=== PATIENT | female | born 1945 | race African-American/Black ===

== ENCOUNTER 2018-02-24 01:38 | Inpatient (IN) | payer MEDICARE ==
[~2018-02-24] VITALS: Ht 157.5 cm; Wt 71.2 kg
[~2018-02-24 01:38] MED LIST: ACET325S17; ALBU05; CINA30; DILT360C27; FESO4TAB; HYDR-4135; ISOS60TA4; METH500T6; METO-411; TRAM50TA; VIC
[2018-02-24] MEDS ORDERED: ONDANSETRON HCL 4MG/2ML VIAL IV STA (02:45)
[2018-02-24] MEDS ORDERED: MORPHINE SULFATE 4 MG/ML CPJ (NOT FOR IM USE) IV STA (02:45)
[2018-02-24 03:23] LABS: HEMATOCRIT. 34.9 % (36.0-48.0); HEMOGLOBIN. 11.3 g/dL (12.0-16.0); MEAN CORPUSCULAR HEMOGLOBIN 29.4 pg (28.0-32.0); MEAN CORPUSCULAR VOLUME 90.9 fL (81.0-99.0); MEAN PLATELET VOLUME 8.5 fl (7.4-10.4); PLATELET 295 x1000/uL (130-400); RED BLOOD CELL COUNT 3.84 mill/uL (4.2-5.4); RED CELL DISTRIBUTION WIDTH 17.4 % (11.6-14.6)
[2018-02-24 03:26] LABS: CHLORIDE 100 mEq/L (98-107)
[2018-02-24] MEDS ORDERED: LEVOFLOXACIN 750MG PREMIX 150 ML IV ONE (06:00)
[2018-02-24] MEDS ORDERED: METRONIDAZOLE 500 MG PREMIX 100 ML IV ONE (06:00)
[2018-02-24 06:34] LABS: PLATELET ESTIMATE NORMAL
[2018-02-24 08:30] VITALS: BP 147/67
[2018-02-24] MEDS ORDERED: ONDANSETRON HCL 4MG/2ML VIAL IV PRN (09:15)
[2018-02-24] MEDS ORDERED: GUAIFENESIN 200MG/10ML SUGAR FREE UDC PO PRN (09:15)
[2018-02-24] MEDS ORDERED: ACETAMINOPHEN 325MG TABLET PO PRN (09:15)
[2018-02-24] MEDS ORDERED: MORPHINE SULFATE 4 MG/ML CPJ (NOT FOR IM USE) IV PRN (09:30)
[2018-02-24 09:48] VITALS: BP 147/67
[2018-02-24] MEDS ORDERED: ASPI-1159 MT (10:14)
[2018-02-24] MEDS ORDERED: CARV6.2548 MT (10:14)
[2018-02-24] MEDS ORDERED: NEPVIT MT (10:14)
[2018-02-24] MEDS ORDERED: CALC667T5 MT (10:15)
[2018-02-24] MEDS ORDERED: CINA60 MT (10:16)
[2018-02-24] MEDS ORDERED: CETI5TAB5 MT (10:17)
[2018-02-24] MEDS ORDERED: OMEP40CA34 MT (10:18)
[2018-02-24] MEDS ORDERED: AZEL205. NS (10:20)
[2018-02-24] MEDS ORDERED: ALBU90AE IH (10:22)
[2018-02-24 13:30] VITALS: BP 122/60
[2018-02-24 16:00] VITALS: BP 134/70
[2018-02-24] MEDS: SIMETHICONE 80MG TABLET CHEW PO PRN (16:00)
[2018-02-24 20:00] VITALS: BP 129/59
[2018-02-25 00:03] VITALS: BP 150/76
[2018-02-25 04:00] VITALS: BP 125/53
[2018-02-25 05:28] LABS: BASOPHILS % 0.3 % (0.0-2.0); EOSINOPHILS % 0.6 % (0.0-5.0); HEMATOCRIT. 34.5 % (36.0-48.0); HEMOGLOBIN. 10.9 g/dL (12.0-16.0); LYMPHOCYTES % 7.2 % (20.0-50.0); MEAN CORPUSCULAR HEMOGLOBIN 29.5 pg (28.0-32.0); MEAN CORPUSCULAR VOLUME 93.1 fL (81.0-99.0); MEAN PLATELET VOLUME 8.9 fl (7.4-10.4); MONOCYTES % 10.1 % (2.0-8.0); NEUTROPHILS % 81.8 % (40.0-76.0); PLATELET 285 x1000/uL (130-400); RED BLOOD CELL COUNT 3.71 mill/uL (4.2-5.4); RED CELL DISTRIBUTION WIDTH 17.4 % (11.6-14.6)
[2018-02-25 05:38] LABS: PHOSPHORUS 4.3 mg/dL (2.5-4.9)
[2018-02-25] MEDS ORDERED: LEVOFLOXACIN 500MG PREMIX 100 ML IV SCH (07:00)
[2018-02-25] MEDS: SIMETHICONE 80MG TABLET CHEW PO PRN ×2 (07:59→18:10)
[2018-02-25 08:00] VITALS: BP 135/61
[2018-02-25] MEDS: METRONIDAZOLE 500 MG PREMIX 100 ML IV SCH ×2 (08:59→20:42)
[2018-02-25] MEDS: LEVOFLOXACIN 250MG PREMIX 50 ML IV SCH (10:20)
[2018-02-25 12:00] VITALS: BP 130/70
[2018-02-25 16:00] VITALS: BP 140/76
[2018-02-25 20:00] VITALS: BP 148/58
[2018-02-26 00:05] VITALS: BP 126/60
[2018-02-26 04:00] VITALS: BP 102/59
[2018-02-26 05:50] LABS: BASOPHILS % 0.5 % (0.0-2.0); EOSINOPHILS % 2.6 % (0.0-5.0); HEMATOCRIT. 32.3 % (36.0-48.0); HEMOGLOBIN. 10.5 g/dL (12.0-16.0); LYMPHOCYTES % 14.4 % (20.0-50.0); MEAN CORPUSCULAR HEMOGLOBIN 30.1 pg (28.0-32.0); MEAN CORPUSCULAR VOLUME 92.4 fL (81.0-99.0); MEAN PLATELET VOLUME 8.6 fl (7.4-10.4); MONOCYTES % 12.1 % (2.0-8.0); NEUTROPHILS % 70.4 % (40.0-76.0); PLATELET 295 x1000/uL (130-400); RED BLOOD CELL COUNT 3.49 mill/uL (4.2-5.4); RED CELL DISTRIBUTION WIDTH 16.8 % (11.6-14.6)
[2018-02-26 06:51] LABS: PHOSPHORUS 5.5 mg/dL (2.5-4.9)
[2018-02-26] MEDS ORDERED: LEVOFLOXACIN 250MG PREMIX 50 ML IV SCH (07:00)
[2018-02-26 08:00] VITALS: BP 131/64
[2018-02-26] MEDS: SIMETHICONE 80MG TABLET CHEW PO PRN (08:09)
[2018-02-26] MEDS ORDERED: SODIUM POLYSTYRENE SULFONATE 15 G/60 ML BOT PO SCH (09:00)
[2018-02-26] MEDS: METRONIDAZOLE 500 MG PREMIX 100 ML IV SCH ×2 (09:22→20:51)
[2018-02-26 12:00] VITALS: BP 138/62
[2018-02-26] MEDS: CALCIUM ACETATE 667MG CAPSULE PO SCH ×2 (13:08→18:14)
[2018-02-26 16:00] VITALS: BP 132/69
[2018-02-26 20:00] VITALS: BP 138/55
[2018-02-27 00:05] VITALS: BP 144/54
[2018-02-27 04:02] VITALS: BP 130/53
[2018-02-27 05:53] LABS: BASOPHILS % 0.4 % (0.0-2.0); EOSINOPHILS % 2.7 % (0.0-5.0); HEMATOCRIT. 30.7 % (36.0-48.0); LYMPHOCYTES % 16.1 % (20.0-50.0); MEAN CORPUSCULAR HEMOGLOBIN 29.7 pg (28.0-32.0); MEAN CORPUSCULAR VOLUME 90.8 fL (81.0-99.0); MEAN PLATELET VOLUME 8.7 fl (7.4-10.4); MONOCYTES % 11.5 % (2.0-8.0); NEUTROPHILS % 69.3 % (40.0-76.0); PLATELET 308 x1000/uL (130-400); RED BLOOD CELL COUNT 3.38 mill/uL (4.2-5.4); RED CELL DISTRIBUTION WIDTH 17.1 % (11.6-14.6)
[2018-02-27 06:51] LABS: PHOSPHORUS 6.4 mg/dL (2.5-4.9)
[2018-02-27 08:17] VITALS: BP 144/61
[2018-02-27] MEDS: CALCIUM ACETATE 667MG CAPSULE PO SCH ×2 (08:37→13:10)
[2018-02-27] MEDS: METRONIDAZOLE 500 MG PREMIX 100 ML IV SCH (08:39)
[2018-02-27] MEDS: LEVOFLOXACIN 250MG PREMIX 50 ML IV SCH (09:30)
[2018-02-27 12:11] VITALS: BP 150/68
[2018-02-27 16:46] VITALS: BP 136/68
[2018-02-27 17:05] VITALS: BP 136/68
== END 2018-02-27 17:29 | disposition home or self-care (01) | DRG 391 ==
LOC: ER 05:15 → 7WST 05:47 → EDBEDREQTM 05:50 → EDBEDREQ 05:50 → EDBEDREQSVC 05:50 → ENRESERV 06:55 → 7WST 09:15
PROVIDERS: ADMIT Internal Medicine; ATTEND Internal Medicine
PROC: 5A1D70Z Performance of Urinary Filtration, Intermittent, Less than 6 Hours Per Day (ICD-10-PCS; principal; 2018-02-24)
PROC: 5A1D70Z Performance of Urinary Filtration, Intermittent, Less than 6 Hours Per Day (ICD-10-PCS; 2018-02-27)
DX: K57.32 Diverticulitis of large intestine without perforation or abscess without bleeding (principal); N18.6 End stage renal disease; E44.0 Moderate protein-calorie malnutrition; N25.81 Secondary hyperparathyroidism of renal origin; I12.0 Hypertensive chronic kidney disease with stage 5 chronic kidney disease or end stage renal disease; E87.5 Hyperkalemia; D64.9 Anemia, unspecified; K59.00 Constipation, unspecified; I95.3 Hypotension of hemodialysis; Z96.651 Presence of right artificial knee joint; J44.9 Chronic obstructive pulmonary disease, unspecified; Z82.49 Family history of ischemic heart disease and other diseases of the circulatory system; Z85.528 Personal history of other malignant neoplasm of kidney; Z90.5 Acquired absence of kidney; Z85.818 Personal history of malignant neoplasm of other sites of lip, oral cavity, and pharynx; Z95.0 Presence of cardiac pacemaker; Z99.2 Dependence on renal dialysis; Z92.3 Personal history of irradiation; Z90.710 Acquired absence of both cervix and uterus; Z88.5 Allergy status to narcotic agent; Z91.048 Other nonmedicinal substance allergy status; Z68.28 Body mass index [BMI] 28.0-28.9, adult
CPT/HCPCS: 36415; 74176; 80048; 80053; 83605; 83690; 83735; 84100; 85025; 96365; 96366; 96368; 96375; 99285; J1956; J2270; J2405; J3490; J7030; J7050

== ENCOUNTER 2021-08-21 12:10 | Emergency (ER) | payer MEDICARE ==
[~2021-08-21] VITALS: Ht 165.1 cm; Wt 82.0 kg
[~2021-08-21 12:10] MED LIST changes: -ACET325S17; -ALBU05; +ALBU90AE IH; +ASPI-1497 MT; +AZEL205. NS; +CALC667T6 MT; +CARV6.2548 MT; +CETI5TAB5 MT; -CINA30; +CINA60 MT; -DILT360C27; -FESO4TAB; -HYDR-4135; -ISOS60TA4; -METH500T6; -METO-411; +NEPVIT MT; +OMEP40CA20 MT; -TRAM50TA; -VIC
[2021-08-21 14:19] LABS: BASOPHILS % 0.6 % (0.0-2.0); EOSINOPHILS % 2.3 % (0.0-5.0); HEMATOCRIT. 32.2 % (36.0-48.0); HEMOGLOBIN. 10.2 g/dL (12.0-16.0); MEAN CORPUSCULAR HEMOGLOBIN 29.6 pg (28.0-32.0); MEAN CORPUSCULAR VOLUME 92.9 fL (81.0-99.0); MEAN PLATELET VOLUME 9.3 fl (7.4-10.4); NEUTROPHILS % 65.1 % (40.0-76.0); PLATELET 321 x1000/uL (130-400); RED BLOOD CELL COUNT 3.46 mill/uL (4.2-5.4); RED CELL DISTRIBUTION WIDTH 17.1 % (11.6-14.6)
[2021-08-21 14:20] LABS: CHLORIDE 104 mEq/L (98-107)
[2021-08-21 16:34] VITALS: BP 144/68
== END 2021-08-21 19:05 | disposition left against medical advice (07) ==
LOC: ER 12:31
DX: R55 Syncope and collapse (principal); J45.909 Unspecified asthma, uncomplicated; I10 Essential (primary) hypertension; Z79.82 Long term (current) use of aspirin; Z79.899 Other long term (current) drug therapy; Z98.890 Other specified postprocedural states
CPT/HCPCS: 36415; 71045; 80053; 82962; 83880; 84484; 85025; 93005; 99285

== ENCOUNTER 2022-11-24 11:12 | Inpatient (IN) | payer MEDICARE ==
[~2022-11-24] VITALS: Ht 165.1 cm; Wt 74.8 kg
[2022-11-24 12:06] LABS: HEMATOCRIT. 38.4 % (36.0-48.0); HEMOGLOBIN. 12.8 g/dL (12.0-16.0); MEAN PLATELET VOLUME 8.4 fl (7.4-10.4); PLATELET 314 x1000/uL (130-400); RED BLOOD CELL COUNT 4.13 mill/uL (4.2-5.4); RED CELL DISTRIBUTION WIDTH 20.1 % (11.6-14.6)
[2022-11-24 12:14] LABS: CHLORIDE 97 mEq/L (98-107)
[2022-11-24] MEDS ORDERED: LORAZEPAM 2MG/ML CPJ IV ONE (12:45)
[2022-11-24 13:12] LABS: PLATELET ESTIMATE NORMAL
[2022-11-24] MEDS ORDERED: HYDRALAZINE 20MG/ML VIAL IV NR (16:45)
[2022-11-24] MEDS ORDERED: HYDRALAZINE 20MG/ML VIAL IV PRN (17:30)
[2022-11-24] MEDS ORDERED: DOCUSATE SODIUM 100MG CAPSULE PO PRN (17:30)
[2022-11-24] MEDS ORDERED: MAGNESIUM/ALUMINUM HYDROXIDE/SIMETHICONE 30ML UDC PO PRN (17:30)
[2022-11-24] MEDS ORDERED: IPRATROPIUM/ALBUTEROL 0.5-3(2.5)MG/3ML NEB NEB PRN (17:30)
[2022-11-24] MEDS ORDERED: ZOLPIDEM TARTRATE 5MG TABLET PO PRN (17:30)
[2022-11-24] MEDS ORDERED: ACETAMINOPHEN 325MG TABLET PO PRN (17:30)
[2022-11-24] MEDS ORDERED: CLONIDINE 0.1MG TABLET PO PRN (17:30)
[2022-11-24] MEDS ORDERED: GUAIFENESIN 200MG/10ML SUGAR FREE UDC PO PRN (17:30)
[2022-11-24] MEDS ORDERED: NITROGLYCERIN 0.4MG TABLET SL SL PRN (17:30)
[2022-11-24] MEDS ORDERED: ONDANSETRON HCL 4MG/2ML INJ IV PRN (17:30)
[2022-11-24 17:59] LABS: T4 FREE 0.91 ng/dL (0.76-1.46)
[2022-11-24 18:24] LABS: FOLIC ACID (FOLATE) SERUM >20 ng/mL ng/mL (>5.38); VITAMIN B12 SERUM 628 pg/mL (211-911)
[2022-11-24] MEDS ORDERED: SODIUM POLYSTYRENE SULFONATE 15 G/60 ML BOT PO NR (20:15)
[2022-11-24] MEDS: FAMOTIDINE 20MG TABLET PO SCH (21:00)
[2022-11-24] MEDS: ASCORBIC ACID 500 MG TABLET PO SCH (21:00)
[2022-11-24] MEDS: NITROGLYCERIN OINT 1GM/INCH UDPKT TD SCH (22:00)
[2022-11-24] MEDS: HYDRALAZINE HCL 50MG TABLET PO SCH (22:00)
[2022-11-24 23:46] LABS: CREATINE KINASE MB FRACTION 3.3 ng/mL (0.5-3.6)
[2022-11-24 23:49] LABS: HEPATITIS B SURFACE ANTIGEN NEGATIVE
[2022-11-25] VITALS (10 sets, daily range): BP systolic 59–170; BP diastolic 44–83
[2022-11-25] MEDS: NITROGLYCERIN OINT 1GM/INCH UDPKT TD SCH ×3 (06:55→22:00)
[2022-11-25] MEDS: CARVEDILOL 3.125 MG TABLET PO SCH ×2 (06:56→18:28)
[2022-11-25] MEDS: HYDRALAZINE HCL 50MG TABLET PO SCH ×3 (06:56→22:00)
[2022-11-25] MEDS: AMLODIPINE 10MG TABLET PO SCH (08:48)
[2022-11-25] MEDS: ASCORBIC ACID 500 MG TABLET PO SCH ×2 (08:48→22:00)
[2022-11-25] MEDS: ASPIRIN 325MG EC TABLET PO SCH (08:48)
[2022-11-25] MEDS: SEVELAMER CARBONATE 800 MG TABLET PO SCH ×3 (08:48→18:27)
[2022-11-25] MEDS: ZINC SULFATE 220 MG ( 50 ) CAPSULE PO SCH (08:48)
[2022-11-25] MEDS: ACETAMINOPHEN 325MG TABLET PO PRN (11:50)
[2022-11-25] MEDS: ENOXAPARIN 30MG/0.3ML SYR SUBCUT SCH (18:27)
[2022-11-26] VITALS: BP 113/50
[2022-11-26 04:00] VITALS: BP 112/42
[2022-11-26] MEDS: HYDRALAZINE HCL 50MG TABLET PO SCH ×3 (06:00→21:23)
[2022-11-26] MEDS: NITROGLYCERIN OINT 1GM/INCH UDPKT TD SCH ×3 (06:00→21:23)
[2022-11-26] MEDS: CARVEDILOL 3.125 MG TABLET PO SCH ×2 (06:27→18:22)
[2022-11-26 08:00] VITALS: BP 146/55
[2022-11-26] MEDS: ZINC SULFATE 220 MG ( 50 ) CAPSULE PO SCH (09:48)
[2022-11-26] MEDS: SEVELAMER CARBONATE 800 MG TABLET PO SCH ×3 (09:48→18:23)
[2022-11-26] MEDS: ACETAMINOPHEN 325MG TABLET PO PRN (09:48)
[2022-11-26] MEDS: ASPIRIN 325MG EC TABLET PO SCH (09:48)
[2022-11-26] MEDS: AMLODIPINE 10MG TABLET PO SCH (09:49)
[2022-11-26] MEDS: ASCORBIC ACID 500 MG TABLET PO SCH ×2 (09:49→21:23)
[2022-11-26 12:00] VITALS: BP 118/49
[2022-11-26 15:26] VITALS: BP 118/49
[2022-11-26] MEDS: ENOXAPARIN 30MG/0.3ML SYR SUBCUT SCH (18:23)
[2022-11-26 20:00] VITALS: BP 144/79
[2022-11-26] MEDS: FAMOTIDINE 20MG TABLET PO SCH (21:23)
[2022-11-27] VITALS (13 sets, daily range): BP systolic 106–154; BP diastolic 40–68
[2022-11-27] MEDS: HYDRALAZINE HCL 50MG TABLET PO SCH (05:31)
[2022-11-27] MEDS: NITROGLYCERIN OINT 1GM/INCH UDPKT TD SCH (05:32)
[2022-11-27] MEDS: CARVEDILOL 3.125 MG TABLET PO SCH (05:32)
[2022-11-27 07:02] LABS: HEMATOCRIT. 35.1 % (36.0-48.0); HEMOGLOBIN. 11.7 g/dL (12.0-16.0); MEAN CORPUSCULAR HEMOGLOBIN 31.6 pg (28.0-32.0); MEAN CORPUSCULAR VOLUME 94.5 fL (81.0-99.0); MEAN PLATELET VOLUME 8.9 fl (7.4-10.4); PLATELET 299 x1000/uL (130-400); RED BLOOD CELL COUNT 3.71 mill/uL (4.2-5.4); RED CELL DISTRIBUTION WIDTH 19.8 % (11.6-14.6)
[2022-11-27 07:22] LABS: PHOSPHORUS 7.7 mg/dL (2.5-4.9)
[2022-11-27] MEDS: SEVELAMER CARBONATE 800 MG TABLET PO SCH (08:28)
[2022-11-27] MEDS: ZINC SULFATE 220 MG ( 50 ) CAPSULE PO SCH (08:28)
[2022-11-27] MEDS: ASCORBIC ACID 500 MG TABLET PO SCH (08:28)
[2022-11-27] MEDS: ASPIRIN 325MG EC TABLET PO SCH (08:28)
[2022-11-27] MEDS: AMLODIPINE 10MG TABLET PO SCH (09:00)
[2022-11-27 09:38] LABS: NUCLEATED RED BLOOD CELLS 1 /100 WBC; PLATELET ESTIMATE NORMAL
[2022-11-27] MEDS ORDERED: SEVELAMER CARBONATE 800 MG TABLET PO SCH (17:40)
[2022-11-30] MEDS ORDERED: PRED5DRO22 RIGHTEYE (22:25)
[2022-11-30] MEDS ORDERED: XALAO RIGHTEYE (22:25)
[2022-11-30] MEDS ORDERED: BRIM5DRO6 RIGHTEYE (22:25)
[2022-11-30] MEDS ORDERED: KETO5DRO37 RIGHTEYE (22:25)
[2022-12-01] MEDS ORDERED: LACT10SO7 MT (09:40)
[2022-12-03] MEDS ORDERED: OMEP20CA14 MT (09:33)
== END 2022-11-27 15:05 | disposition home or self-care (01) | DRG 91 ==
LOC: ER 11:25 → 8WST 14:27 → EDBEDREQ 14:34 → SUPCPDRO 17:18
PROVIDERS: ADMIT Internal Medicine; ATTEND Internal Medicine
PROC: 5A1D70Z Performance of Urinary Filtration, Intermittent, Less than 6 Hours Per Day (ICD-10-PCS; principal; 2022-11-24)
PROC: 5A1D70Z Performance of Urinary Filtration, Intermittent, Less than 6 Hours Per Day (ICD-10-PCS; 2022-11-25)
PROC: 5A1D70Z Performance of Urinary Filtration, Intermittent, Less than 6 Hours Per Day (ICD-10-PCS; 2022-11-26)
DX: G92.8 Other toxic encephalopathy (principal); N18.6 End stage renal disease; I13.2 Hypertensive heart and chronic kidney disease with heart failure and with stage 5 chronic kidney disease, or end stage renal disease; E87.20 Acidosis, unspecified; I16.1 Hypertensive emergency; E87.1 Hypo-osmolality and hyponatremia; E88.09 Other disorders of plasma-protein metabolism, not elsewhere classified; D63.1 Anemia in chronic kidney disease; I50.9 Heart failure, unspecified; E87.5 Hyperkalemia; J44.9 Chronic obstructive pulmonary disease, unspecified; Z82.49 Family history of ischemic heart disease and other diseases of the circulatory system; Z85.818 Personal history of malignant neoplasm of other sites of lip, oral cavity, and pharynx; Z95.0 Presence of cardiac pacemaker; Z99.2 Dependence on renal dialysis
CPT/HCPCS: 36415; 71045; 80048; 80053; 80061; 82550; 82553; 82607; 82746; 82962; 83036; 83540; 83550; 83605; 83735; 84100; 84145; 84439; 84443; 84484; 85025; 86705; 86709; 86803; 87340; 90935; 93005; 93306; 93970; 97161; 99285; C1893; J0360; J1650; J2060

== ENCOUNTER 2023-10-10 17:59 | Emergency (ER) | payer MEDICARE ==
[~2023-10-10] VITALS: Ht 157.5 cm; Wt 68.0 kg
[~2023-10-10 17:59] MED LIST changes: +BRIM5DRO6 RIGHTEYE; -CETI5TAB5 MT; +KETO5DRO38 RIGHTEYE; +LACT10SO7 MT; +OMEP20CA14 MT; +PRED5DRO22 RIGHTEYE; +XALAO RIGHTEYE
[2023-10-10 18:11] VITALS: TEMP 97.5; O2SAT 100
[2023-10-10] MEDS ORDERED: BACITRACIN ZINC OINT UDPKT TOP ONE (18:30)
[2023-10-10] MEDS ORDERED: LIDOCAINE HCL/PF 1% 10 MG/ML 5ML VIAL INFIL ONE (18:30)
[2023-10-10 20:26] LABS: EOSINOPHILS % 1.3 % (0.0-5.0); HEMATOCRIT. 31.8 % (36.0-48.0); HEMOGLOBIN. 10.4 g/dL (12.0-16.0); LYMPHOCYTES % 17.8 % (20.0-50.0); MEAN CORPUSCULAR HEMOGLOBIN 32.4 pg (28.0-32.0); MEAN CORPUSCULAR HGB CONC 32.6 g/dL (31.0-37.0); MEAN CORPUSCULAR VOLUME 99.2 fL (81.0-99.0); MEAN PLATELET VOLUME 8.3 fl (7.4-10.4); MONOCYTES % 11.8 % (2.0-8.0); NEUTROPHILS % 68.1 % (40.0-76.0); PLATELET 302 x1000/uL (130-400); RED CELL DISTRIBUTION WIDTH 15.8 % (11.6-14.6); WHITE BLOOD COUNT 6.5 x1000/uL (4.5-11.0)
[2023-10-10 20:36] LABS: PARTIAL THROMBOPLASTIN TIME 27.6 sec (23.4-31.0); PROTHROMBIN TIME 11.3 sec (9.6-11.0)
[2023-10-10 21:34] VITALS: BP 154/67; PULSE 88; RESP 14
== END 2023-10-10 21:40 | disposition home or self-care (01) ==
LOC: ER 18:20
DX: T82.838A Hemorrhage due to vascular prosthetic devices, implants and grafts, initial encounter (principal); I12.0 Hypertensive chronic kidney disease with stage 5 chronic kidney disease or end stage renal disease; N18.6 End stage renal disease; J45.909 Unspecified asthma, uncomplicated; Z99.2 Dependence on renal dialysis; Z95.0 Presence of cardiac pacemaker; X58.XXXA Exposure to other specified factors, initial encounter
CPT/HCPCS: 36415; 85025; 86850; 86900; 99283

== ENCOUNTER 2025-04-24 07:22 | Inpatient (IN) | payer MEDICARE ==
[2025-04-24] VITALS (14 sets, daily range): BP systolic 150–185; BP diastolic 46–78; PULSE 67–75; RESP 18–20; TEMP 36.2–37.1408; O2SAT 97–100
[~2025-04-24] VITALS: Ht 157.5 cm; Wt 59.9 kg
[~2025-04-24 07:22] MED LIST changes: -AZEL205. NS; +AZEL205.2 NS; +FOLI0.8T53 MT; +KETO-104 RIGHTEYE; -KETO5DRO38 RIGHTEYE; -NEPVIT MT
[2025-04-24 08:15] LABS: BASOPHILS % 1.2 % (0.0-2.0); EOSINOPHILS % 0.6 % (0.0-5.0); HEMATOCRIT. 30.1 % (36.0-48.0); HEMOGLOBIN. 9.7 g/dL (12.0-16.0); LYMPHOCYTES % 12.7 % (20.0-50.0); MEAN PLATELET VOLUME 7.9 fl (7.4-10.4); MONOCYTES % 10.6 % (2.0-8.0); NEUTROPHILS % 74.9 % (40.0-76.0); PLATELET 234 x1000/uL (130-400); RED BLOOD CELL COUNT 3.01 mill/uL (4.2-5.4); RED CELL DISTRIBUTION WIDTH 18.3 % (11.6-14.6)
[2025-04-24 08:30] LABS: UREA NITROGEN BLOOD 28 mg/dL (9-23)
[2025-04-24 08:31] LABS: ASPARTATE AMINOTRANSFERASE 14 IU/L (<34)
[2025-04-24 08:32] LABS: BILIRUBIN DIRECT 0.1 mg/dL (<=3.0); BILIRUBIN TOTAL 0.4 mg/dL (0.1-1.0); PROTEIN TOTAL 6.5 g/dL (6.0-8.3)
[2025-04-24 08:39] LABS: CREATININE 6.2 mg/dL (0.6-1.0)
[2025-04-24] MEDS: KETOROLAC 15MG/ML VIAL IV ONE (08:47)
[2025-04-24] MEDS: ONDANSETRON HCL 4MG/2ML INJ IV ONE (08:47)
[2025-04-24] MEDS ORDERED: METRONIDAZOLE 500 MG PREMIX 100 ML IV ONE (09:15)
[2025-04-24] MEDS ORDERED: LEVOFLOXACIN 500MG PREMIX 100 ML IV ONE (09:15)
[2025-04-24] MEDS ORDERED: ACETAMINOPHEN 325MG TABLET PO PRN (11:30)
[2025-04-24] MEDS ORDERED: DOCUSATE SODIUM 100MG CAPSULE PO PRN (11:30)
[2025-04-24] MEDS ORDERED: ONDANSETRON HCL 4MG/2ML INJ IV PRN (11:30)
[2025-04-24] MEDS ORDERED: IPRATROPIUM/ALBUTEROL 0.5-3(2.5)MG/3ML NEB HHN PRN (11:30)
[2025-04-24] MEDS ORDERED: GUAIFENESIN 200MG/10ML SUGAR FREE UDC PO PRN (11:30)
[2025-04-24] MEDS ORDERED: CLONIDINE 0.1MG TABLET PO PRN (11:30)
[2025-04-24] MEDS ORDERED: MAGNESIUM/ALUMINUM HYDROXIDE/SIMETHICONE 30ML UDC PO PRN (11:30)
[2025-04-24] MEDS ORDERED: LORAZEPAM 0.5MG TABLET PO PRN (11:30)
[2025-04-24] MEDS ORDERED: LACTULOSE 20G/30ML UDC PO PRN (12:00)
[2025-04-24] MEDS: FAMOTIDINE 20MG/2ML VIAL IV SCH (12:47)
[2025-04-24] MEDS: CALCIUM ACETATE 667MG CAPSULE PO SCH (12:47)
[2025-04-24] MEDS: PIPERACILLIN/TAZO 3.375G/50ML 50 ML IV SCH (13:00)
[2025-04-24] MEDS: LOSARTAN 100 MG TABLET PO SCH (13:21)
[2025-04-24 13:26] LABS: INR 1.1
[2025-04-24 13:34] LABS: TROPONIN I HIGH SENSITIVITY 28 ng/L (3.0-34)
[2025-04-24 13:36] LABS: PHOSPHORUS 5.3 mg/dL (2.5-4.9)
[2025-04-24 14:31] LABS: FOLIC ACID (FOLATE) SERUM 8.88 ng/mL (>5.38); VITAMIN B12 SERUM 493 pg/mL (211-911)
[2025-04-24] MEDS ORDERED: PREDNISOLONE ACETATE 1% OPHTH DROPS 5ML RIGHTEYE SCH (21:00)
[2025-04-24] MEDS ORDERED: BRIMONIDINE 0.2% OPHTH DROPS 5ML EACHEYE SCH (21:00)
[2025-04-24] MEDS: ATORVASTATIN CALCIUM 20MG TABLET PO SCH (21:56)
[2025-04-24] MEDS: CARVEDILOL 6.25 MG TABLET PO SCH (21:57)
[2025-04-24] MEDS: LATANOPROST 0.005% OPHTH DROPS 2.5ML RIGHTEYE SCH (21:57)
[2025-04-24] MEDS: BRIMONIDINE 0.2% OPHTH DROPS 5ML RIGHTEYE SCH (21:58)
[2025-04-24] MEDS: EPOETIN ALFA-EPBX 4,000 UNITS/ML VIAL SUBCUT SCH (21:58)
[2025-04-24 22:25] LABS: TROPONIN I HIGH SENSITIVITY 23 ng/L (3.0-34)
[2025-04-25] VITALS: BP 154/55; PULSE 69; RESP 17; TEMP 36.2; O2SAT 100
[2025-04-25 04:00] VITALS: BP 159/54; PULSE 67; RESP 17; TEMP 36.2; O2SAT 100
[2025-04-25] MEDS: ACETAMINOPHEN 325MG TABLET PO PRN (05:02)
[2025-04-25 08:00] VITALS: BP 151/56; PULSE 64; RESP 18; TEMP 36.8; O2SAT 100
[2025-04-25] MEDS ORDERED: CINACALCET HCL 60MG TABLET PO SCH (09:00)
[2025-04-25 09:04] LABS: BASOPHILS % 0.5 % (0.0-2.0); EOSINOPHILS % 1.6 % (0.0-5.0); HEMATOCRIT. 29.8 % (36.0-48.0); HEMOGLOBIN. 9.3 g/dL (12.0-16.0); LYMPHOCYTES % 17.9 % (20.0-50.0); MEAN PLATELET VOLUME 8.5 fl (7.4-10.4); MONOCYTES % 12.7 % (2.0-8.0); NEUTROPHILS % 67.3 % (40.0-76.0); PLATELET 203 x1000/uL (130-400); RED BLOOD CELL COUNT 2.91 mill/uL (4.2-5.4); RED CELL DISTRIBUTION WIDTH 18.5 % (11.6-14.6)
[2025-04-25 09:23] LABS: TROPONIN I HIGH SENSITIVITY 25 ng/L (3.0-34)
[2025-04-25 09:25] LABS: ASPARTATE AMINOTRANSFERASE 10 IU/L (<34)
[2025-04-25 09:26] LABS: BILIRUBIN DIRECT 0.2 mg/dL (<=3.0); BILIRUBIN TOTAL 0.4 mg/dL (0.1-1.0); PROTEIN TOTAL 6.5 g/dL (6.0-8.3)
[2025-04-25] MEDS: FERROUS SULFATE 325MG TABLET PO SCH (09:38)
[2025-04-25] MEDS: FOLIC ACID/VITAMIN B COMP W-C TABLET PO SCH (09:38)
[2025-04-25] MEDS: ASPIRIN 81MG EC TABLET PO SCH (09:39)
[2025-04-25 12:00] VITALS: BP 156/54; PULSE 65; RESP 18; TEMP 36.7; O2SAT 100
[2025-04-25] MEDS: HYDRALAZINE 20MG/ML VIAL IV SCH (12:53)
[2025-04-25 16:00] VITALS: BP 160/65; PULSE 77; RESP 18; TEMP 36.7; O2SAT 100
[2025-04-25 18:31] LABS: CREATINE KINASE MB FRACTION 1.1 ng/mL (0.5-3.6); LDL CHOLESTEROL 60 mg/dL (5-100); TRIGLYCERIDE 74 mg/dL (0-150); UREA NITROGEN BLOOD 19 mg/dL (9-23)
[2025-04-25 18:32] LABS: ASPARTATE AMINOTRANSFERASE 15 IU/L (<34)
[2025-04-25 18:33] LABS: BILIRUBIN DIRECT 0.1 mg/dL (<=3.0); BILIRUBIN TOTAL 0.3 mg/dL (0.1-1.0); PHOSPHORUS 5.0 mg/dL (2.5-4.9); PROTEIN TOTAL 7.2 g/dL (6.0-8.3)
[2025-04-25 18:35] LABS: T4 FREE 1.04 ng/dL (0.89-1.76)
[2025-04-25 18:36] LABS: CREATININE 5.3 mg/dL (0.6-1.0)
[2025-04-25 20:00] VITALS: BP 157/52; PULSE 82; RESP 18; TEMP 36.4; O2SAT 99
[2025-04-26] VITALS (15 sets, daily range): BP systolic 126–184; BP diastolic 48–68; PULSE 68–79; RESP 16–18; TEMP 36.3–36.6; O2SAT 98–100
[2025-04-26 12:04] LABS: CREATINE KINASE MB FRACTION 1.2 ng/mL (0.5-3.6)
[2025-04-26 12:09] LABS: PHOSPHORUS 5.1 mg/dL (2.5-4.9); UREA NITROGEN BLOOD 34 mg/dL (9-23)
[2025-04-26 12:30] LABS: CREATININE 6.6 mg/dL (0.6-1.0)
[2025-04-26 13:27] LABS: HEPATITIS A AB IGM NEGATIVE (Negative); HEPATITIS B CORE AB IGM NEGATIVE (Negative)
[2025-04-26 13:28] LABS: HEPATITIS C AB NON REACTIVE (Neg) (Negative)
[2025-04-26] MEDS ORDERED: SULF1TAB48 MT ×2 (13:40→15:51)
[2025-04-26] MEDS ORDERED: METR-167 MT ×2 (13:40→15:51)
[2025-04-26 14:11] LABS: BASOPHILS % 1.4 % (0.0-2.0); EOSINOPHILS % 2.3 % (0.0-5.0); HEMATOCRIT. 30.5 % (36.0-48.0); HEMOGLOBIN. 9.7 g/dL (12.0-16.0); LYMPHOCYTES % 21.0 % (20.0-50.0); MEAN PLATELET VOLUME 8.7 fl (7.4-10.4); MONOCYTES % 12.3 % (2.0-8.0); NEUTROPHILS % 63.0 % (40.0-76.0); PLATELET 236 x1000/uL (130-400); RED BLOOD CELL COUNT 2.97 mill/uL (4.2-5.4); RED CELL DISTRIBUTION WIDTH 18.1 % (11.6-14.6)
== END 2025-04-26 16:00 | disposition home health service (06) | DRG 391 ==
LOC: ER 07:32 → 6EST 09:04 → EDBEDREQTM 09:08 → EDBEDREQ 09:08 → ENRESERV 09:24 → 6WST 18:48
PROVIDERS: ADMIT Internal Medicine; ATTEND Internal Medicine
PROC: 5A1D70Z Performance of Urinary Filtration, Intermittent, Less than 6 Hours Per Day (ICD-10-PCS; principal; 2025-04-24)
PROC: 5A1D70Z Performance of Urinary Filtration, Intermittent, Less than 6 Hours Per Day (ICD-10-PCS; 2025-04-26)
DX: K57.32 Diverticulitis of large intestine without perforation or abscess without bleeding (principal); K65.9 Peritonitis, unspecified; N18.6 End stage renal disease; N32.1 Vesicointestinal fistula; I13.2 Hypertensive heart and chronic kidney disease with heart failure and with stage 5 chronic kidney disease, or end stage renal disease; I42.9 Cardiomyopathy, unspecified; I50.42 Chronic combined systolic (congestive) and diastolic (congestive) heart failure; K80.20 Calculus of gallbladder without cholecystitis without obstruction; E83.51 Hypocalcemia; N30.90 Cystitis, unspecified without hematuria; E78.5 Hyperlipidemia, unspecified; I16.0 Hypertensive urgency; I27.20 Pulmonary hypertension, unspecified; D53.9 Nutritional anemia, unspecified; I07.1 Rheumatic tricuspid insufficiency; I25.10 Atherosclerotic heart disease of native coronary artery without angina pectoris; J44.89 Other specified chronic obstructive pulmonary disease; R06.03 Acute respiratory distress; I34.0 Nonrheumatic mitral (valve) insufficiency; Z99.2 Dependence on renal dialysis; Z95.0 Presence of cardiac pacemaker; Z90.710 Acquired absence of both cervix and uterus; Z90.5 Acquired absence of kidney; Z79.82 Long term (current) use of aspirin; Z85.818 Personal history of malignant neoplasm of other sites of lip, oral cavity, and pharynx; Z87.891 Personal history of nicotine dependence; Z88.5 Allergy status to narcotic agent; Z91.048 Other nonmedicinal substance allergy status; Z79.899 Other long term (current) drug therapy; Z82.49 Family history of ischemic heart disease and other diseases of the circulatory system
CPT/HCPCS: 36415; 74176; 80048; 80061; 80076; 82550; 82553; 82607; 82728; 82746; 83036; 83540; 83550; 83605; 83735; 83880; 84100; 84145; 84439; 84443; 84484; 85025; 85027; 85379; 86705; 86709; 86850; 86900; 87340; 90935; 93005; 96374; 96375; 99285; A4606; G0378; J0360; J0885; J1308; J1885; J2405; J2543

== ENCOUNTER 2025-07-18 15:47 | Inpatient (IN) | payer MEDICARE ==
[~2025-07-18] VITALS: Ht 170.2 cm; Wt 68.9 kg
[~2025-07-18 15:47] MED LIST changes: +METR-167 MT; -OMEP20CA14 MT; +SULF1TAB48 MT
[2025-07-18] MEDS: DIPHENHYDRAMINE 50MG/ML VIAL IV ONE (16:04)
[2025-07-18 16:57] LABS: BASOPHILS % 2.1 % (0.0-2.0); EOSINOPHILS % 0.9 % (0.0-5.0); HEMATOCRIT. 38.0 % (36.0-48.0); HEMOGLOBIN. 12.1 g/dL (12.0-16.0); LYMPHOCYTES % 20.5 % (20.0-50.0); MEAN PLATELET VOLUME 8.8 fl (7.4-10.4); MONOCYTES % 12.1 % (2.0-8.0); NEUTROPHILS % 64.4 % (40.0-76.0); PLATELET 295 x1000/uL (130-400); RED BLOOD CELL COUNT 3.93 mill/uL (4.2-5.4); RED CELL DISTRIBUTION WIDTH 17.6 % (11.6-14.6)
[2025-07-18 16:58] VITALS: O2SAT 99
[2025-07-18] MEDS: MIDAZOLAM HCL 2 MG/2 ML VIAL IM ONE (16:58)
[2025-07-18 17:09] LABS: INR 1.1
[2025-07-18 17:13] LABS: ETHANOL BLOOD < 10 mg/dL (<10); PROTEIN TOTAL 8.2 g/dL (6.0-8.3); UREA NITROGEN BLOOD 18 mg/dL (9-23)
[2025-07-18 17:14] LABS: ASPARTATE AMINOTRANSFERASE 14 IU/L (<34); TROPONIN I HIGH SENSITIVITY 25 ng/L (3.0-34)
[2025-07-18 17:15] LABS: BILIRUBIN DIRECT 0.1 mg/dL (<=3.0); BILIRUBIN TOTAL 0.4 mg/dL (0.1-1.0)
[2025-07-18 17:44] LABS: CREATININE 5.4 mg/dL (0.6-1.0)
[2025-07-18] MEDS: LABETALOL 5MG/ML 4ML INJ IV ONE ×2 (18:16→19:09)
[2025-07-18 20:00] VITALS: BP 201/92; PULSE 101; RESP 18; TEMP 38.6; O2SAT 97
[2025-07-18] MEDS ORDERED: ACETAMINOPHEN 325MG TABLET PO PRN (20:30)
[2025-07-18] MEDS ORDERED: DOCUSATE SODIUM 100MG CAPSULE PO PRN (20:30)
[2025-07-18] MEDS ORDERED: LORAZEPAM 0.5MG TABLET PO PRN (20:30)
[2025-07-18] MEDS ORDERED: IPRATROPIUM/ALBUTEROL 0.5-3(2.5)MG/3ML NEB HHN PRN (20:30)
[2025-07-18] MEDS ORDERED: ONDANSETRON HCL 4MG/2ML INJ IV PRN (20:30)
[2025-07-18] MEDS ORDERED: GUAIFENESIN 200MG/10ML SUGAR FREE UDC PO PRN (20:30)
[2025-07-18 21:00] VITALS: BP 201/92; PULSE 101; RESP 18; TEMP 38.5864
[2025-07-18] MEDS: CLONIDINE 0.1MG TABLET PO PRN (21:24)
[2025-07-18] MEDS ORDERED: IOHEXOL-350 100 ML BOTTLE ONE (22:33)
[2025-07-19] VITALS: BP 176/59; PULSE 100; RESP 18; TEMP 38.7; O2SAT 100
[2025-07-19] MEDS: ACETAMINOPHEN 325MG TABLET PO PRN (00:39)
[2025-07-19 04:00] VITALS: BP 90/43; PULSE 75; RESP 18; TEMP 36.6; O2SAT 100
[2025-07-19] MEDS: BLOOD SUGAR DIAGNOSTIC STRIP TEST SCH (04:15)
[2025-07-19] MEDS ORDERED: DEXTROSE 50% WATER 50ML SYRINGE IV PRN (04:15)
[2025-07-19] MEDS: CEFTRIAXONE 2GM/50ML 50 ML IV SCH (06:11)
[2025-07-19] MEDS: LACTULOSE 20G/30ML UDC PO SCH (06:11)
[2025-07-19 07:55] LABS: BASOPHILS % 0.4 % (0.0-2.0); EOSINOPHILS % 0.1 % (0.0-5.0); HEMATOCRIT. 35.8 % (36.0-48.0); HEMOGLOBIN. 11.2 g/dL (12.0-16.0); LYMPHOCYTES % 21.1 % (20.0-50.0); MEAN PLATELET VOLUME 8.9 fl (7.4-10.4); MONOCYTES % 14.4 % (2.0-8.0); NEUTROPHILS % 64.0 % (40.0-76.0); PLATELET 209 x1000/uL (130-400); RED BLOOD CELL COUNT 3.66 mill/uL (4.2-5.4); RED CELL DISTRIBUTION WIDTH 17.8 % (11.6-14.6)
[2025-07-19 08:00] VITALS: BP 131/42; PULSE 63; RESP 19; TEMP 36.3; O2SAT 100
[2025-07-19 08:13] LABS: UREA NITROGEN BLOOD 19 mg/dL (9-23)
[2025-07-19 08:16] LABS: PHOSPHORUS 6.3 mg/dL (2.5-4.9)
[2025-07-19 08:18] LABS: CREATININE 6.5 mg/dL (0.6-1.0)
[2025-07-19] MEDS: METRONIDAZOLE 500 MG PREMIX 100 ML IV SCH (08:51)
[2025-07-19] MEDS: ASPIRIN 81MG TABLET PO SCH (08:51)
[2025-07-19] MEDS: PANTOPRAZOLE SODIUM 40 MG/VIAL IV SCH (08:51)
[2025-07-19 12:00] VITALS: BP 138/46; PULSE 69; RESP 16; TEMP 36.7; O2SAT 98
[2025-07-19 16:00] VITALS: BP 166/52; PULSE 72; RESP 18; TEMP 36.4; O2SAT 96
[2025-07-19] MEDS: HYDRALAZINE 20MG/ML VIAL IV PRN (16:26)
[2025-07-19] MEDS: AMLODIPINE 5MG TABLET PO SCH (17:04)
[2025-07-19] MEDS: CARVEDILOL 6.25 MG TABLET PO SCH (17:05)
[2025-07-19 20:00] VITALS: BP 145/69; PULSE 78; RESP 17; TEMP 36.1; O2SAT 96
[2025-07-19] MEDS: LOSARTAN 25 MG TABLET PO SCH (20:36)
[2025-07-20] VITALS (8 sets, daily range): BP systolic 109–170; BP diastolic 31–64; PULSE 72–80; RESP 16–20; TEMP 36.3–37; O2SAT 95–100
[2025-07-20 07:11] LABS: BASOPHILS % 0.5 % (0.0-2.0); EOSINOPHILS % 2.6 % (0.0-5.0); HEMATOCRIT. 32.5 % (36.0-48.0); HEMOGLOBIN. 10.2 g/dL (12.0-16.0); LYMPHOCYTES % 14.3 % (20.0-50.0); MEAN PLATELET VOLUME 9.2 fl (7.4-10.4); MONOCYTES % 12.1 % (2.0-8.0); NEUTROPHILS % 70.5 % (40.0-76.0); PLATELET 225 x1000/uL (130-400); RED BLOOD CELL COUNT 3.35 mill/uL (4.2-5.4); RED CELL DISTRIBUTION WIDTH 17.9 % (11.6-14.6)
[2025-07-20 07:22] LABS: UREA NITROGEN BLOOD 30 mg/dL (9-23)
[2025-07-20 07:23] LABS: CREATININE 7.4 mg/dL (0.6-1.0)
[2025-07-20 07:24] LABS: PHOSPHORUS 6.3 mg/dL (2.5-4.9)
[2025-07-20 08:13] LABS: HEPATITIS A AB IGM NEGATIVE (Negative)
[2025-07-20 08:14] LABS: HEPATITIS B CORE AB IGM NEGATIVE (Negative); HEPATITIS C AB NON REACTIVE (Neg) (Negative)
[2025-07-20] MEDS: NEOMY SULF/BACITRAC ZN/POLY OINT 28GM TOP SCH (09:05)
[2025-07-20] MEDS ORDERED: METR-167 MT (13:02)
[2025-07-20] MEDS ORDERED: ASPI-1160 PO (13:02)
[2025-07-20] MEDS ORDERED: NEOM28OI53 TOP (13:02)
[2025-07-20] MEDS ORDERED: AMLO5TAB88 PO (13:02)
[2025-07-20] MEDS ORDERED: LOSA25TA26 PO (13:02)
[2025-07-20] MEDS ORDERED: COR6 PO (13:02)
[2025-07-21] VITALS (10 sets, daily range): BP systolic 126–183; BP diastolic 51–77; PULSE 62–77; RESP 15–20; TEMP 36.1–36.6696; O2SAT 90–100
[2025-07-21] MEDS: FAMOTIDINE 20MG/2ML VIAL IV SCH (09:49)
== END 2025-07-21 12:10 | disposition home or self-care (01) | DRG 871 ==
LOC: ER 15:47 → EDBEDREQ 18:06 → EDBEDREQTM 18:06 → 5WST 21:14
PROVIDERS: ADMIT Internal Medicine; ATTEND Internal Medicine
PROC: 5A1D70Z Performance of Urinary Filtration, Intermittent, Less than 6 Hours Per Day (ICD-10-PCS; principal; 2025-07-20)
DX: A41.9 Sepsis, unspecified organism (principal); G93.41 Metabolic encephalopathy; N18.6 End stage renal disease; I13.2 Hypertensive heart and chronic kidney disease with heart failure and with stage 5 chronic kidney disease, or end stage renal disease; E72.20 Disorder of urea cycle metabolism, unspecified; D63.8 Anemia in other chronic diseases classified elsewhere; E83.39 Other disorders of phosphorus metabolism; T81.31XA Disruption of external operation (surgical) wound, not elsewhere classified, initial encounter; Z99.2 Dependence on renal dialysis; K76.82 Hepatic encephalopathy; I65.23 Occlusion and stenosis of bilateral carotid arteries; J44.89 Other specified chronic obstructive pulmonary disease; I67.1 Cerebral aneurysm, nonruptured; R73.9 Hyperglycemia, unspecified; E78.5 Hyperlipidemia, unspecified; I25.10 Atherosclerotic heart disease of native coronary artery without angina pectoris; Z96.612 Presence of left artificial shoulder joint; Z79.899 Other long term (current) drug therapy; Z85.118 Personal history of other malignant neoplasm of bronchus and lung; Z85.528 Personal history of other malignant neoplasm of kidney; Z85.818 Personal history of malignant neoplasm of other sites of lip, oral cavity, and pharynx; Z90.5 Acquired absence of kidney; Z90.710 Acquired absence of both cervix and uterus; Z93.6 Other artificial openings of urinary tract status; Z95.5 Presence of coronary angioplasty implant and graft; Z95.0 Presence of cardiac pacemaker; Z82.49 Family history of ischemic heart disease and other diseases of the circulatory system; Z74.01 Bed confinement status; Y83.8 Other surgical procedures as the cause of abnormal reaction of the patient, or of later complication, without mention of misadventure at the time of the procedure; Y92.89 Other specified places as the place of occurrence of the external cause
CPT/HCPCS: 36415; 70496; 70498; 71045; 80048; 80076; 80320; 82140; 82962; 83036; 83605; 83735; 84100; 84145; 84484; 85025; 86705; 86709; 87340; 90935; 93005; 93970; 99291; A4606; J0360; J0696; J1200; J1308; J2250; J2470; J3490; Q9967; G0480